=== PATIENT | female | born 1965 ===

== ENCOUNTER 2021-09-01 16:19 | Emergency (ER) | payer SELFPAY ==
[~2021-09-01] VITALS: Ht 160 cm; Wt 71.8 kg
[2021-09-01] MEDS ORDERED: ACETAMINOPHEN 500 MG TABLET PO ONE (17:30)
[2021-09-01] MEDS ORDERED: PENICILLIN V POTASSIUM 500 MG TABLET PO ONE (17:30)
[2021-09-01 17:40] VITALS: BP 139/86
== END 2021-09-01 17:57 | disposition home or self-care (01) ==
LOC: EMS 16:25
DX: S02.5XXA Fracture of tooth (traumatic), initial encounter for closed fracture (principal); X58.XXXA Exposure to other specified factors, initial encounter; Y93.89 Activity, other specified; Y92.89 Other specified places as the place of occurrence of the external cause; Y99.8 Other external cause status
CPT/HCPCS: 99283